=== PATIENT | female | born 1955 | race Caucasian/White ===

== ENCOUNTER 2016-05-13 05:34 | Day surgery (SDC) | payer BC ==
--- NOTE | 2016-05-07 10:54 | HPF ---
CHIEF COMPLAINT Right shoulder partial-thickness rotator cuff tear. SUBJECTIVE Ms. Hernandez has completed surgery on her hand for carpal tunnel syndrome. She has been seen for postop and things are going well. She has a known right shoulder partial-thickness versus full-thickness rotator cuff tear as documented on MRI. Dr. Colon has offered her an arthroscopy for rotator cuff repair versus debridement, subacromial decompression and treatment as needed. Risks and benefits have been reviewed. Pain is still located laterally radiating to the deltoid. It is intermittent and worse with lifting, overhead motion, pushing, pulling, throwing, weather changes or movement in general. She has tried ibuprofen as well as chronic pain medication for her back. She has done a home exercise program. She has tried ice and heat. Continues to have pain in the shoulder despite all these things. She is ready for more definitive treatment and her hand at this point is improving. REVIEW OF SYSTEMS Review of Systems was obtained and reviewed through patient questionnaire completed today. Constitutional: The patient does not have any chills, fever, fatigue, malaise, or weight loss. HEENT: The patient does not have any headache or dizziness. Respiratory: The patient does not have any cough, shortness of air, recent respiratory infection, or wheezing. Cardiovascular: The patient does not have any chest pain, palpitation, leg swelling, or syncope. Gastrointestinal: The patient does not have any abdominal pain, constipation, diarrhea, vomiting, heartburn, or nausea. Skin: The patient does not have any skin infection, rash, or numbness of the extremity. Musculoskeletal: The patient denies other joint pain as well. Neurological: The patient does not have any seizure. Psychiatric: The patient does not have any anxiety or depression. Hematologic/Lymphatic: The patient does not have easy bruising or easy bleeding. PAST MEDICAL HISTORY Hypercholesterolemia. Hypertension. GERD. IBS. Anxiety. Depression. Migraines. Asthma. Bronchitis. COPD. Pneumonia. Fibromyalgia. MEDICATIONS Restoril. Quetiapine. Paroxetine. Hydrocodone and acetaminophen. Gabapentin. Furosemide. Duloxetine. Contrave. Baclofen. ProAir. Symbicort. Simvastatin. Estradiol. Atenolol. ALLERGIES Pentazocine, penicillin and adhesive tape. SURGICAL HISTORY 1. Right knee arthroplasty. 2. Hysterectomy. 3. Carpal tunnel release. SOCIAL HISTORY She smokes 5-10 cigarettes a day, consumes alcohol on a social basis, denies illicit drug use, and is a homemaker. FAMILY HISTORY Father - Arthritis, CT, heart failure, hypertension, hypercholesterolemia, IBS and stroke. Mother with ovarian cancer and breast cancer. PHYSICAL EXAM 5 ft. 6 in. Weighs 244 lbs. Well developed. Well nourished. Alert and oriented. No acute distress. Normal mood and affect. No rash or abnormal lesions in the affected extremity. 2+ palpable distal pulses. Brisk capillary refill. A normal-appearing gait without assistive device. She has no swelling, deformity or mass over the shoulder. There is tenderness over the anterolateral border of the acromion. Mild tenderness over the greater tuberosity. AC joint is mildly tender and anatomical neck tenderness. No bicipital groove or joint line tenderness. Hands are nontender. Range of motion: Passively is full. Does have some pain through an impingement arc of abduction and pain at the end range of motion in forward flexion. Hand and wrist range of motion is normal bilaterally. Strength is 4/5 with abduction, 4/5 internal and external rotation. Distal strength normal. She has positive impingement signs in the right shoulder. Negative Speed's, Yergason's and Dade's. No instability. She has a healed carpal tunnel incision. Neurologically intact with improving sensation in the median neve dermatome. ASSESSMENT 1. Right shoulder high-grade partial-thickness rotator cuff tear, tendinopathy and impingement and has failed conservative therapy. 2. Status post carpal tunnel release. PLAN Proceed with above-mentioned surgery. Risks and benefits have been reviewed. They are include, but are not limited to, infection, nerve damage, artery damage, stroke, CT, pulmonary embolism, deep vein thrombosis, ileus, , potential risk that although the rotator cuff is repaired it may not heal or may result in loss of strength or range of motion. She indicated she understood and wants to proceed. Risks are not limited to the above-mentioned alone. Will plan on proceeding in the near future. [place]
[2016-05-13] VITALS (19 sets, daily range): BP systolic 120–169; BP diastolic 60–95; PULSE 59–98; RESP 16–26; TEMP 97.8–98.3; O2SAT 93–100; Ht 167.6 cm; Wt 108.6 kg
[~2016-05-13] VITALS: Ht 167.6 cm; Wt 108.6 kg
[~2016-05-13 05:34] MED LIST: ALBU8.5H INH; ASPI-557 PO; ATEN100T77 PO; BACL20TA PO; BUDE10.22 INH; DIPH25CA84 PO; DOCU-168 PO; DULO60CA46 PO; ESTR2TAB PO; FURO-35 PO; GABA-354 PO; ONDA4TAB4 PO; POTA20TA68 PO; QUET200T PO; SIMV40TA82 PO; TRAM50TA53 PO; [UNRECOGNIZED DRUG - CODE] PO; [UNRECOGNIZED DRUG - CODE] PO; [UNRECOGNIZED DRUG - CODE] PO; [UNRECOGNIZED DRUG - OTHER] PO
--- OUTSIDE RECORDS SUMMARY | 2016-05-13 05:37 | XMS REPORT | Continuity of Care Document ---
Author Author [facility] Organization [facility] Address Unknown Phone Unavailable Support Name Relationship Address Phone GINA COLON MD Caregiver [address] [place] [address] Unavailable REBA OLIVERA Caregiver [address] [place] [address] Unavailable JOHN HERNANDEZ Next Of Kin [address] [facility] [address] [place] [address] Insurance Providers Guarantor Babatunde Hernandez S Address [address] [facility] [facility] [address] [place] [address] Email [email or web address] Payer [employer] Other Policy Number [id number] Subscriber's Name John Hernandez Brandy Relationship 01 Spouse Group Number [id number] Advance Directives Directive Response Recorded Date/Time Ordered Resuscitation Status Full Code 04/09/16 3:17pm Resuscitation Documents on File No 04/10/16 9:17am DPOA for Healthcare Only No 04/10/16 9:17am Living Will No 04/10/16 9:17am Problems Active Problems Medical Problem Onset Date Status Asthma Unknown Chronic COPD (chronic obstructive pulmonary disease) Unknown Degenerative arthritis of right knee Unknown Fibromyalgia Unknown GERD (gastroesophageal reflux disease) Unknown Hypertension Unknown Hypo-osmolality and hyponatremia Unknown Acute Lumbago Unknown Nicotine dependence Unknown Obesity, morbid, BMI 40.0-49.9 Unknown Panic disorder Unknown Risk factors for obstructive sleep apnea Unknown Medications Current Home Medications Medication Dose Units Route Directions Days Qty Instructions Start Date Albuterol Sulfate (Proair Hfa 90 Mcg/Actuation) 8.5 Gm Hfa.aer.ad 2 Puff Inhalation Every 4-6 Hours as needed for Asthma 05/09/14 Aspirin (Aspir 81) 81 Mg Tablet. 1 Tab Oral Daily 30 Tablet 04/09 Atenolol 100 Mg Tablet 100 Mg Oral Daily 05/09/14 Baclofen 20 Mg Tablet 1 Tab Oral Three Times A Day 90 04/09/16 Budesonide/Formoterol Fumarate (Symbicort 80/4.5) 60 Puff/Inhaler Inhaler 2 Puff Inhalation Twice A Day 05/09/14 Diphenhydramine Hcl (Benadryl) 25 Mg Capsule 2 Cap Oral Every 4-6 Hours as needed for Allery Symptoms 05/09/14 Docusate Sodium (Colace) 100 Mg Capsule 2 Cap Oral Bedtime as needed for Constipation 05/23/14 Duloxetine Hcl (Cymbalta) 60 Mg Capsule.dr 2 Cap Oral Daily 05/09 Estradiol 2 Mg Tablet 1 Tab Oral Daily 05/09/14 Furosemide 20 Mg Tablet 20 Mg Oral Daily 05/09/14 Gabapentin 400 Mg Capsule 1 Cap Oral Three Times A Day 90 Capsule 04/09/16 Hydrocodone/Acetaminophen (Hydrocodon-Acetaminophn 10-300) 10-300 Tablet 1 Tab Oral Every 6 Hours as needed for Pain 04/09/16 Ondansetron Hcl (Zofran) 4 Mg Tablet 4 Mg Oral Every 6 Hours for Nausea 10 Tablet 04/10/16 Paroxetine Hcl 20 Mg Tablet 20 Mg Oral Three Times A Day 05/09/14 Potassium Chloride (Klor-Con M20) 20 Meq Tab.prt.sr 20 Meq Oral Daily 05/09/14 Quetiapine Fumarate (Seroquel) 200 Mg Tablet 200 Mg Oral As Directed 100 MG AT 0800 100 MG 1300 300 MG HS 05/09/14 Simvastatin 40 Mg Tablet 40 Mg Oral Bedtime 05/09/14 Temazepam 30 Mg Capsule 30 Mg Oral Bedtime 05/09/14 Tramadol Hcl (Ultram) 50 Mg Tablet 1-2 Tab Oral Every 4 Hours Prn as needed for Pain 60 Tablet 04/10/16 Past Home Medications Medication Directions Ordered Status Aspirin (Aspirin Ec) 81 Mg Tablet.dr, 1 Tab Oral Daily 05/09/14 Discontinued Aspirin/Acetaminophen/Caffeine (Excedrin Extra Strength Caplet) 1 Each Tablet, 2 Tab Oral Four Times Daily 05/23/14 Discontinued Hydrocodone Bit/Acetaminophen (Hydrocodone-Apap 7.5/500 Mg Ta) 1 Udtab Tablet, 1 Tab Oral Every 6 Hours as needed for Pain 05/09/14 Discontinued Ibuprofen 200 Mg Tablet, 2 Tab Oral Every 4 Hours as needed for Pain Discontinued Naltrexone Hcl/Bupropion Hcl (Contrave Er 8-90 Mg Tablet) 1 Each Tablet.er, 1 Tab Oral Four Times Daily 04/09/16 Discontinued Social History Social History Problem Response Recorded Date/Time Onset Date Status Reason for Hospitalization right carpal tunnel release 04/10/2016 12:09pm Not Applicable Not Applicable Chewing Tobacco Status No 04/09/2016 2:56pm Not Applicable Not Applicable Hx Substance Use No 04/09/2016 2:56pm Not Applicable Not Applicable Hx Alcohol Use Y [place] 04/09/2016 2:56pm Not Applicable Not Applicable Has the pt used tobacco in the last 12 months Yes 04/10/2016 9:21am Not Applicable Not Applicable Query Response Start Date Stop Date Smoking Status Current every day smoker Hospital Discharge Instructions Instructions: Care Instructions: I was in the hospital because (patient own words): "fix my right hand carpal tunnel" Discharge Diet: Resume normal diet as tolerated. Discharge Activity: Please refer to Dr. Colon's postoperative instructions. Follow Up Appointments: ZACH Del Rosario April 25, 2016 at 2:30pm Pending Lab / Results: No Pending Lab Expected Signs/Symptoms: Please refer to Dr. Colon's postoperative instructions. Notify Physician If: Please refer to Dr. Colon's postoperative instructions. During Business Hours:: Please call our office at [phone]. After Business Hours:: Please call the hospital at [phone] and have the physician or the covering physician paged. Pain Management/Treatment: Please refer to Dr. Colon's postoperative instructions. Wound/Incision Care: Please refer to Dr. Colon's postoperative instructions. Condition at time of discharge: Good Plan of Care Discharge Date 04/10/16 2:00pm Instructions/Education Provided [facility] [place] Carpal Tunnel Prescriptions See Medication Section Functional Status Query Response Date Recorded Ability to complete ADL's impeded by No change April 10, 2016 9:17am Allergies, Adverse Reactions, Alerts Allergen Type Severity Reaction Status Last Updated Penicillin Allergy Unknown HIVES, DIFFICULTY BREATHING Active 04/10/16 Pentazocine Allergy Unknown RASH, ITCHING, SWELLING, VERTIGO Active Latex Allergy Unknown RASH Active 04/10/16 ADHESIVE TAPE Allergy Unknown RASH Active 05/09/14 Immunizations Query Response on File Recorded Date/Time Hx Influenza Vaccination Y fall 201504/09/16 2:56pm Hx Pneumococcal Vaccination Y fall04/09/16 2:56pm Hx Influenza Vaccination Y fall 201504/09/16 2:56pm Vital Signs Acute Vital Signs Vital Response Date/Time Temperature (Fahrenheit) 98.4 deg F (96.8 - 99.1) 04/10/2016 1:25pm Temperature (Calculated Celsius) 36.91754 degrees C (36.0 - 37.3) 04/10/2016 1:25pm Temperature Source Temporal 04/10/2016 1:25pm Pulse Rate (adult) 75 bpm (60 - 100) 04/10/2016 1:25pm Respiratory Rate 16 breaths/min (10 - 20) 04/10/2016 1:25pm O2 Sat by Pulse Oximetry 94 % (90 - 100) 04/10/2016 1:25pm Oxygen Delivery Method Room Air 04/10/2016 1:25pm Blood Pressure 130/69 mm Hg 04/10/2016 1:25pm Blood Pressure Source Automatic Cuff 04/10/2016 1:25pm Height (Feet) 5 feet 04/10/2016 9:16am Height (Inches) 6.00 inches 04/10/2016 9:16am Weight (Kilograms) 110.900 kg 04/10/2016 9:16am Body Mass Index (BMI) 39.5 04/10/2016 9:16am Results Laboratory Results Test Name Result Units Flags Reference Collection Date/Time Result Date/ Time Comments Icterus Index < 2 0-7 04/10/2016 9:00am 04/10/2016 9:17am Chemistry Specimen Hemolysis < 15 0-25 04/10/2016 9:00am 04/10/2016 9 :17am 0-25: Specimen Exhibited No Hemolysis. Turbidity < 20 0-20 04/10/2016 9:00am 04/10/2016 9:17am Sodium Level 139 MEQ/L 134-144 04/10/2016 9:00am 04/10/2016 9:17am Potassium Level 3.9 MEQ/L 3.6-5 04/10/2016 9:00am 04/10/2016 9:17am Chloride Level 104 MEQ/L 98-107 04/10/2016 9:00am 04/10/2016 9:17am Carbon Dioxide Level 27 MEQ/L 22-30 04/10/2016 9:00am 04/10/2016 9: 17am Anion Gap 8 MEQ/L 5-15 04/10/2016 9:00am 04/10/2016 9:17am Blood Urea Nitrogen 10.0 MG/DL 7-17 04/10/2016 9:00am 04/10/2016 9: 17am Creatinine 0.7 MG/DL 0.7-1.2 04/10/2016 9:00am 04/10/2016 9:17am BUN/Creatinine Ratio 14 RATIO 6-26 04/10/2016 9:00am 04/10/2016 9:17am Glomerular Filtration Rate Calc 86 04/10/2016 9:00am 04/10/2016 9: 17am Glucose Level 99 MG/DL 65-110 04/10/2016 9:00am 04/10/2016 9:17am Calculated Osmolality 267 MOSM/KG 261-280 04/10/2016 9:00am 04/10/2016 9:17am Calcium Level 9.0 MG/DL 8.4-10.2 04/10/2016 9:00am 04/10/2016 9:17am Procedures Procedure Status Date Provider(s) Carpal tunnel release, right Completed 04/10/16 GINA COLON MD Encounters Encounter Location Arrival/Admit Date Discharge/Depart Date Attending Provider Departed [facility] 04/10/16 8:40am 04/10/16 2: 00pm GINA COLON MD
--- OUTSIDE RECORDS SUMMARY | 2016-05-13 05:37 | XMS REPORT | Continuity of Care Document ---
Author Author [facility] Organization [facility] Address Unknown Phone Unavailable Care Team Providers Care Importer Exporter Name Role Phone Jasson Alston Primary Care Physician [phone] Source Comments Some departments are not documenting in the electronic medical record. If you do not see the information that you expected, contact Release of Information in the Health Information Management department at [phone] for further assistance in locating additional records.[facility] Active Allergies and Adverse Reactions Allergen Noted Date Severity Reactions Comments Adhesive Tape (Rosins) 02/19/2011 ITCHING Penicillin G 01/27/2011 HIVES, SHORTNESS OF BREATH Talwin 01/27/2011 RASH, ITCHING, EDEMA Current Medications Prescription Sig. Disp. Refills Start End Date Status Date simvastatin (ZOCOR) 40 mg Take 40 mg by mouth at Active tablet bedtime daily. zolpidem (AMBIEN) 10 mg Take 10 mg by mouth at Active tablet bedtime as needed. pregabalin (LYRICA) 150 Take 150 mg by mouth Active mg capsule three times daily. PARoxetine (PAXIL) 20 mg Take 20 mg by mouth Active tablet daily. Take three tablets daily. potassium chloride SR Take 20 mEq by mouth Active (K-DUR) 20 mEq tablet daily. clonazePAM (KLONOPIN) 1 Take 1 mg by mouth twice Active mg tablet daily. CYCLOBENZAPRINE HCL Take 10 mg by mouth three Active (CYCLOBENZAPRINE PO) times daily. QUETIAPINE FUMARATE Take 100 mg by mouth Active (SEROQUEL PO) twice daily. Take 200 mg at lunchtime, 200 mg at bedtime. furosemide (LASIX) 20 mg Take 20 mg by mouth Active tablet daily. TRIAMCINOLONE ACETONIDE Insert into nose as Active (NASACORT NA) directed. albuterol (PROAIR HFA) 90 Inhale 2 Puffs by mouth Active mcg/Actuation inhaler every 6 hours as needed. budesonide/formoterol(+) Inhale 2 Puffs by mouth Active (SYMBICORT) 80-4.5 twice daily. mcg/Actuation HFAA inhalation estradiol (ESTRACE) 2 mg Take 2 mg by mouth daily. Active tablet cyproheptadine Take 4 mg by mouth. Two Active (PERIACTIN) 4 mg tablet tabs BID ATENOLOL PO Take 100 mg by mouth Active daily. NEBULIZER/COMPRESSOR Use as directed. Active (DEVILBISS TRAVELER COMPRESSOR MISC) albuterol 0.5% Inhale 2.5 mg solution as Active (PROVENTIL; VENTOLIN) 2.5 directed every 6 hours as mg/0.5 mL Nebu nebulizer needed. solution VITS Take by mouth. Active W-CA,FE,FA(<1MG) ( VITAMIN PO) Fiber (Herbal) Tab Take by mouth. Active DOCUSATE CALCIUM (STOOL Take by mouth. Active SOFTENER PO) Aspirin 81 mg Tab Take by mouth daily. Active HYDROcodone/acetaminophen Take 1 Tab by mouth every Active (+) (LORTAB) 7.5/500 mg 6 hours as needed. tablet fentaNYL (DURAGESIC) 50 Apply 1 Patch to top of Active mcg/hr patch skin as directed every 72 hours. DOCOSAHEXANOIC ACID/EPA Take by mouth daily. Active (FISH OIL PO) ASCORBATE CALCIUM Take by mouth daily. Active (VITAMIN C PO) diphenhydrAMINE Take 50 mg by mouth as Active (BENADRYL) 25 mg capsule Needed. Active Problems Problem Noted Date Right breast mass [facility] 01/28/2011 Overview: Diagnosis: Right breast masees Procedure: Right WL excisional biopsy 02/19/11 History: The patient presents to the [facility] on 01/28/11 for an evaluation of right breast mass. She has also recently noted a mass in her right axilla which has been intermittently present for a year, but is now sore. Outside imaging ([place]): Mammogram 11/27/10 reviewed with . Two sites of concern in right breast identified. Patient unable to undergo stereo bx. Right WL excisional biopsy (bracketed WL with both targeted calcifications in one specimen) performed on 02/19/11. Final pathology revealed Intraductal papilloma (0.2 cm) involved by adenosis, completely excised. Focal sclerosing adenosis, fibrocystic changes and usual ductal hyperplasia. Microcalcifications identified in the benign ducts. FH: Breast cancer: 2 paternal aunts, mother, 2 maternal aunts (1with breast and ovarian), ages unknown. Genetic counseling scheduled for post operative appointment. 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 Pulse 72 02/28/2011 3:45 PM [employer]ARD[employer] MECH[employer]IC Temperature 36.9 C (98.5 F) 02/28/2011 3:45 PM [employer] MECH[employer]IC Respiratory Rate - - Height 1.651 m (5' 5") 02/19/2011 11:14 AM [employer]ARD[employer]CH[employer] Weight 120.112 kg (264 lb 12.8 02/28/2011 3:45 PM GARD[employer] MECH[employer]IC oz) Body Mass Index 44.06 02/28/2011 3:45 PM [employer]ARD[employer]CH[employer] Oxygen Saturation 98% 02/19/2011 3:56 PM [employer]ARD[employer] MECH[employer]IC Plan of Care Health Maintenance Due Date Last Done Comments Hepatitis C Screening 1957 Physical (Comprehensive) 1964 Exam Pertussis Vaccine 1968 Tetanus Vaccine 1974 Cervical Cancer Screening 1978 Colorectal Cancer 11/04/2007 Screening Breast Cancer Screening 01/29/2012 01/28/2011 Influenza Vaccine 10/11/2016 Results from Last 3 Months Not on file
--- OUTSIDE RECORDS SUMMARY | 2016-05-13 05:37 | XMS REPORT | Continuity of Care Document ---
Author Author [facility] Address Unknown Phone Unavailable Allergies Active Description Code Type Severity Reaction Onset Reported/Identified Relationship to Patient Clinical Status Yes LATEX GLOVES [id number] Drug Allergy N/A N/A Yes ADHESIVE TAPE 79952 Chemical N/A N/A Yes PENICILLIN G 86960 DRUG INGREDI N/A N/A Yes PENTAZOCINE LACTATE 5087 DRUG INGREDI N/A N/A Medications Problems Procedures Results Test Result Range COMPREHENSIVE METABOLIC PANEL - 01/25/15 10:22 ALBUMIN 3.3 g/dL 3.5-5.0 ALKALINE PHOSPHATASE 89 U/L 46-116 ALT 31 U/L 9-52 AST 20 U/L 14-36 BILIRUBIN,TOTAL 0.2 mg/dL 0.2-1.3 BUN BLOOD 16 mg/dL 7-17 CALCIUM 8.9 mg/dL 8.4-10.2 CHLORIDE 97 mmol/L 99-108 CO2 28 mmol/L 22-30 CREATININE 0.91 mg/dL 0.70-1.20 EGFR > mL/min >59 GLUCOSE 91 mg/dL 64-110 POTASSIUM 4.3 mmol/L 3.6-5.0 PROTEIN TOTAL 7.3 g/dL 6.0-8.0 SODIUM 134 mmol/L 138-148 CBC WITH AUTO DIFFERENTIAL - 01/25/15 10:22 BASOPHILS RELATIVE PERCENT 0.9 % 0.0-2.5 EOSINOPHILS RELATIVE PERCENT 0.8 % <=5.0 HEMATOCRIT 40.1 % 34.9-44.5 HEMOGLOBIN 13.0 g/dL 12.0-15.5 LYMPHOCYTES RELATIVE PERCENT 27.4 % 22.0- 49.0 MEAN CORPUSCULAR HEMOGLOBIN 29.0 pg 26.0- 34.0 MEAN CORPUSCULAR HEMOGLOBIN CONC 32.4 g/dL 31.0-37.0 MEAN CORPUSCULAR VOLUME 89.7 fL 81.6- 98.3 MONOCYTES RELATIVE PERCENT 7.7 % 2.0-9.0 NEUTROPHILS RELATIVE PERCENT 63.2 % 40.0- 75.0 PLATELET COUNT 423 10E9/L 150-450 RED BLOOD CELL COUNT 4.48 10E12/L 3.90- 5.03 RED CELL DISTRIBUTION WIDTH 13.1 % 11.9- 15.5 [id number] 11.5 10E9/L 3.5-10.5 2933097 3.20 10E9/L 0.90-2.90 0566206 0.90 10E9/L 0.30-0.90 6489718 0.10 10E9/L 0.05-0.50 3602480 7.20 10E9/L 1.70-7.00 9191218 0.10 10E9/L 0.00-0.30 TSH (REFLEX FREE T4 IF ABNORMAL) - 01/25/15 10:22 TSH 4.110 uIU/mL 0.400-4.000 T4, FREE - 02/01/15 14:09 FREE T4 0.85 ng/dL 0.70-1.71 T4, FREE - 04/17/15 10:11 FREE T4 0.61 ng/dL 0.70-1.71 TSH - 04/17/15 10:11 TSH 2.255 uIU/mL 0.400-4.000 CBC WITH AUTO DIFFERENTIAL - 07/25/15 11:18 BASOPHILS RELATIVE PERCENT 2.1 % 0.0-2.5 EOSINOPHILS RELATIVE PERCENT 1.7 % <=5.0 HEMATOCRIT 39.9 % 34.9-44.5 HEMOGLOBIN 13.1 g/dL 12.0-15.5 LYMPHOCYTES RELATIVE PERCENT 32.3 % 22.0- 49.0 MEAN CORPUSCULAR HEMOGLOBIN 29.1 pg 26.0- 34.0 MEAN CORPUSCULAR HEMOGLOBIN CONC 32.8 g/dL 31.0-37.0 MEAN CORPUSCULAR VOLUME 88.5 fL 81.6- 98.3 MONOCYTES RELATIVE PERCENT 7.1 % 2.0-9.0 NEUTROPHILS RELATIVE PERCENT 56.8 % 40.0- 75.0 PLATELET COUNT 369 10E9/L 150-450 RED BLOOD CELL COUNT 4.51 10E12/L 3.90- 5.03 RED CELL DISTRIBUTION WIDTH 13.1 % 11.9- 15.5 7560203 7.9 10E9/L 3.5-10.5 5267094 2.60 10E9/L 0.90-2.90 4480891 0.60 10E9/L 0.30-0.90 7109305 0.10 10E9/L 0.05-0.50 8626069 4.40 10E9/L 1.70-7.00 6612494 0.20 10E9/L 0.00-0.30 COMPREHENSIVE METABOLIC PANEL - 07/25/15 11:18 ALBUMIN 3.6 g/dL 3.5-5.0 ALKALINE PHOSPHATASE 93 U/L 46-116 ALT 21 U/L 9-52 AST 16 U/L 14-36 BILIRUBIN,TOTAL 0.3 mg/dL 0.2-1.3 BUN BLOOD 9 mg/dL 7-17 CALCIUM 9.2 mg/dL 8.4-10.2 CHLORIDE 98 mmol/L 99-108 CO2 28 mmol/L 22-30 CREATININE 0.90 mg/dL 0.70-1.20 EGFR > mL/min >59 GLUCOSE 100 mg/dL 64-110 POTASSIUM 4.5 mmol/L 3.6-5.0 PROTEIN TOTAL 7.5 g/dL 6.0-8.0 SODIUM 136 mmol/L 138-148 LIPID PANEL - 07/25/15 11:18 CHOLESTEROL 244 mg/dL <=200 HDL CHOLESTEROL 58 mg/dL 40-90 NON-HDL CHOLESTEROL 186 mg/dL 0-129 TRIGLYCERIDE 410 mg/dL 0-149 HEPATITIS C ANTIBODY - 07/25/15 11:18 HEP C IGG INTERP. Non-reactive Non- reactive CBC WITH AUTO DIFFERENTIAL - 03/26/16 09:48 BASOPHILS RELATIVE PERCENT 0.4 % 0.0-2.5 EOSINOPHILS RELATIVE PERCENT 1.7 % <=5.0 HEMATOCRIT 36.6 % 34.9-44.5 HEMOGLOBIN 12.1 g/dL 12.0-15.5 LYMPHOCYTES RELATIVE PERCENT 39.4 % 22.0- 49.0 MEAN CORPUSCULAR HEMOGLOBIN 30.1 pg 26.0- 34.0 MEAN CORPUSCULAR HEMOGLOBIN CONC 33.1 g/dL 31.0-37.0 MEAN CORPUSCULAR VOLUME 90.7 fL 81.6- 98.3 MONOCYTES RELATIVE PERCENT 6.8 % 2.0-9.0 NEUTROPHILS RELATIVE PERCENT 51.7 % 40.0- 75.0 PLATELET COUNT 306 10E9/L 150-450 RED BLOOD CELL COUNT 4.04 10E12/L 3.90- 5.03 RED CELL DISTRIBUTION WIDTH 12.6 % 11.9- 15.5 9021124 8.3 10E9/L 3.5-10.5 5052056 3.30 10E9/L 0.90-2.90 8882966 0.60 10E9/L 0.30-0.90 8217332 0.10 10E9/L 0.05-0.50 3946449 4.30 10E9/L 1.70-7.00 4590614 0.00 10E9/L 0.00-0.30 LIPID PANEL-[place] - 03/26/16 09:48 CHOLESTEROL 186 mg/dL <=200 CHOLESTEROL/HDL RATIO 3.4 <=4.4 HDL CHOLESTEROL 54 mg/dL 40-90 TRIGLYCERIDE 226 mg/dL 0-601 3085054 87 mg/dL TSH (REFLEX FREE T4 IF ABNORMAL) - 03/26/16 09:48 TSH 2.426 uIU/mL 0.400-4.000 CBC WITH AUTO DIFFERENTIAL - 04/30/16 16:10 BASOPHILS RELATIVE PERCENT 1.1 % 0.0-2.5 EOSINOPHILS RELATIVE PERCENT 1.6 % <=5.0 HEMATOCRIT 35.1 % 34.9-44.5 HEMOGLOBIN 11.4 g/dL 12.0-15.5 LYMPHOCYTES RELATIVE PERCENT 41.8 % 22.0- 49.0 MEAN CORPUSCULAR HEMOGLOBIN 29.3 pg 26.0- 34.0 MEAN CORPUSCULAR HEMOGLOBIN CONC 32.6 g/dL 31.0-37.0 MEAN CORPUSCULAR VOLUME 89.8 fL 81.6- 98.3 MONOCYTES RELATIVE PERCENT 9.1 % 2.0-9.0 NEUTROPHILS RELATIVE PERCENT 46.4 % 40.0- 75.0 PLATELET COUNT 309 10E9/L 150-450 RED BLOOD CELL COUNT 3.91 10E12/L 3.90- 5.03 RED CELL DISTRIBUTION WIDTH 12.5 % 11.9- 15.5 1264899 8.6 10E9/L 3.5-10.5 3127858 3.60 10E9/L 0.90-2.90 8796959 0.80 10E9/L 0.30-0.90 2049066 0.10 10E9/L 0.05-0.50 3006091 4.00 10E9/L 1.70-7.00 7317206 0.10 10E9/L 0.00-0.30 BASIC METABOLIC PANEL - 04/30/16 16:10 BUN BLOOD 9 mg/dL 7-17 CALCIUM 8.5 mg/dL 8.4-10.2 CHLORIDE 101 mmol/L 99-108 CO2 32 mmol/L 22-30 CREATININE 0.93 mg/dL 0.70-1.20 EGFR > mL/min >59 GLUCOSE 86 mg/dL 64-110 POTASSIUM 4.0 mmol/L 3.6-5.0 SODIUM 140 mmol/L 135-145 VITAMIN B12 - 04/30/16 16:10 VITAMIN B12 516 pg/mL 211-911 FERRITIN - 04/30/16 16:10 FERRITIN 44 ng/mL 10-291 FOLATE RBC - 04/30/16 16:10 RED CELL FOLATE 1197 ng/mL 280-791 Encounters ACCT No. Visit Date/Time Discharge Status Pt. Type Provider Facility Loc./Unit Complaint [id number] 02/20/2016 14:09:49 02/20/2016 14:09:50 DIS Outpatient [id number] 02/20/2016 14:09:08 02/20/2016 14:09:09 DIS Outpatient [id number] 02/20/2016 14:07:05 02/20/2016 14:07:06 DIS Outpatient [id number] 02/20/2016 13:37:22 02/20/2016 13:37:22 DIS Outpatient [id number] 02/20/2016 13:36:06 02/20/2016 13:36:07 DIS Outpatient [id number] 02/20/2016 13:09:04 02/20/2016 13:09:04 DIS Outpatient [id number] 02/20/2016 13:08:50 02/20/2016 13:08:50 DIS Outpatient [id number] 02/20/2016 13:07:18 02/20/2016 13:07:18 DIS Outpatient [id number] 02/16/2016 09:36:28 02/16/2016 09:36:28 DIS Outpatient [id number] 02/16/2016 09:36:07 02/16/2016 09:36:08 DIS Outpatient [id number] 03/06/2016 11:06:23 DIS Outpatient [id number] 02/20/2016 15:12:52 DIS Outpatient [id number] 02/20/2016 14:07:00 DIS Outpatient [id number] 02/20/2016 13:37:41 DIS Outpatient [id number] 02/20/2016 13:37:21 DIS Outpatient [id number] 02/20/2016 13:35:50 DIS Outpatient [id number] 02/20/2016 13:31:00 Document Registration [id number] 02/20/2016 06:44:47 ACT Outpatient [id number] 02/20/2016 06:44:46 ACT Outpatient [id number] 02/16/2016 09:39:12 DIS Outpatient [id number] 02/16/2016 09:37:37 DIS Outpatient [id number] 02/16/2016 09:37:36 DIS Outpatient [id number] 02/16/2016 09:36:27 DIS Outpatient
[2016-05-13] MEDS: LR 1,000 ML IV SCH ×2 (06:28→09:14)
[2016-05-13 06:38] LABS: ANION GAP 11 MEQ/L (5-15); BUN/CREATININE RATIO 19 RATIO (6-26); CALCIUM 9.3 MG/DL (8.4-10.2); CHLORIDE 105 MEQ/L (98-107); CO2 - CARBON DIOXIDE 26 MEQ/L (22-30); CREATININE 0.7 MG/DL (0.7-1.2); GLOMERULAR FILTRATION RATE 86; GLUCOSE 104 MG/DL (65-110); POTASSIUM 4.5 MEQ/L (3.6-5); SODIUM 142 MEQ/L (134-144)
--- NOTE | 2016-05-13 06:46 | ANESPREOP ---
Anesthesia Record Date and Time DATE: 05/13/16 TIME: 06:44 Pre-Op Diagnosis right rotator cuff tear Proposed Surgical Procedure RT SHOULDER SCOPE NPO since: midnight Allergies: Coded Allergies: amitriptyline (Verified Allergy, Mild, RASH, 05/13/16) Penicillins (Unverified Allergy, Unknown, HIVES, DIFFICULTY BREATHING, 05/13) latex (Unverified Allergy, Unknown, RASH, 05/13/16) DOES USE NON LATEX UNDERWEAR pentazocine (Unverified Allergy, Unknown, RASH, ITCHING, SWELLING, VERTIGO , 05/13/16) Uncoded Allergies: ADHESIVE TAPE (Allergy, Unknown, RASH, 05/09/14) Ht/Wt/BMI Height: 5 ' 6.00 " Weight: 108.600 kg BMI: 38.6 kg/m2 Vital Signs Date Time Temp Pulse Resp B/P Pulse Ox O2 Delivery O2 Flow Rate FiO2 05/13/16 05:52 98.3 59 16 145/69 96 Room Air Medications Inpatient Medications Current Medications Medications (Trade) Dose Ordered Sig/Zakia Start Time Stop Time Status Last Admin Dose Admin Lactated Ringer's (Lactated Ringers) 1,000 ml @ 50 mls/hr Q20H 05/13/16 07:00 05/13/16 06:28 50 MLS/HR Albuterol Sulfate (Proair HFA 90 mcg/actuation) 8.5 Gm Hfa.aer.ad, 2 PUFF INH Q4 -6H PRN for ASTHMA, (Reported) Last Taken: on 05/13/16 0619 Aspirin (Aspir 81) 81 Mg Tablet.dr, 1 TAB PO DAILY, (Reported) Last Taken: on 05/03/16 Atenolol (Atenolol) 100 Mg Tablet, 100 MG PO DAILY, (Reported) Last Taken: on 05/13/16 0330 Baclofen (Baclofen) 20 Mg Tablet, 1 TAB PO TID, (Reported) Last Taken: on 05/12/162029 Budesonide/Formoterol Fumarate (Symbicort 80/4.5 ) 60 Puff/Inhaler Inhaler, 2 PUFF INH BID, (Reported) Last Taken: on 05/13/16 0619 Diphenhydramine HCl (Benadryl) 25 Mg Capsule, 2 CAP PO Q4-6H PRN for ALLERY SYMPTOMS, (Reported) Last Taken: on Unknown Date & Time Docusate Sodium (Colace) 100 Mg Capsule , 2 CAP PO HS PRN for CONSTIPATION, (Reported) Last Taken: on 05/12/162029 Duloxetine HCl (Cymbalta) 60 Mg Capsule.dr, 2 CAP PO DAILY, (Reported) Last Taken: on 05/12/161199 Estradiol (Estradiol) 2 Mg Tablet, 1 TAB PO DAILY, (Reported) Last Taken: on 05/12/16799 Furosemide (Furosemide) 20 Mg Tablet, 20 MG PO DAILY, (Reported) Last Taken: on 05/12/16799 Gabapentin (Gabapentin) 400 Mg Capsule, 1 CAP PO TID, (Reported) Last Taken: on 05/12/162029 Hydrocodone/Acetaminophen (Hydrocodon- Acetaminophn 10-300) 10-300 Tablet, 1 TAB PO Q6H PRN for PAIN, (Reported) Last Taken: on 05/12/162099 Ondansetron HCl (Zofran) 4 Mg Tablet, 4 MG PO Q6H Last Taken: on Unknown Date & Time Paroxetine Hcl (Paroxetine Hcl) 20 Mg Tablet, 20 MG PO TID, (Reported) Last Taken: on 05/12/162029 Potassium Chloride (Klor-Con M20) 20 Meq Tab.prt.sr, 20 MEQ PO DAILY, (Reported) Last Taken: on 05/12/16799 Quetiapine Fumarate (Seroquel) 200 Mg Tablet, 200 MG PO DIRECTED, (Reported) 100 MG AT 0800 100 MG 1300 300 MG HS Last Taken: on 05/12/162099 Simvastatin (Simvastatin) 40 Mg Tablet, 40 MG PO HS, (Reported) Last Taken: on 05/12/162099 Temazepam (Temazepam) 30 Mg Capsule, 30 MG PO HS , (Reported) Last Taken: on 05/12/162099 [Contrate] , 1 TAB PO BID, (Reported) Last Taken: on 04/27/16 Currently on Beta Jonathan: Yes Beta Jonathan Last Taken: 05-13-16 AT 0330 Medical/Surgical History Anesthesia PMH: Reports: *Hypertension (TAKES MEDS), Anesthesia Reactions (N/V , NO AIRWAY ISSUES), Arthritis (KNEES, 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 ), Denies: *Angina, *Diabetes, *Dyspnea, *FL, Blood Transfusion Reac, CHF, CVA/Stroke/TIA, Cancer, Clotting Problems, Deep Vein Thrombosis, Glaucoma, Hepatitis, Hiatal Hernia, Malignant Hyperthermia, Pneumonia, Renal Disease, Seizures, Sleep Apnea, Thyroid Disease, Tuberculosis Smoking Status: Current every day smoker # of Packs per Day: 1 # of Years: 40 Use Chewing Tobacco?: No Second Hand Exposure: No Substance Use Type: does not use Alcohol Intake: none Past Surgical History Orthopedic Surgeries: Yes - 05/24/14 TKR-RIGHT,RT CTR Abdominal Surgeries: No Genitourinary Surgeries: Yes - BLADDER SLING 2009 Cardiac Surgeries: No Endocrine Surgeries: No Reproductive Surgeries: Yes - VAG HYST WITH LAP ASSISTED BSO 2003; LUMPECTOMY Neurological Surgeries: No Ear Surgeries: No Nose Surgeries: No Throat Surgeries: No Other Surgeries: Yes Anesthesia Adverse Reactions: FOUND none Pertinent Findings Laboratory Tests 05/13/16 06:22 EKG Rhythm: Sinus Rhythm Physical Exam Respiratory: Lungs clear Cardiovascular: FOUND Regular rate, rhythm Airway Assessment Mallampati Score: II TMD: 3 Fingerbreadths Neck Extension: Good Overall Assessment: No Airway Concerns ASA: 3 Plan Anesthesia Plan: GETA Discussion Discussed risks/options/alternatives of anesthesia and questions answered. Patient consents. Nursing pain assessment noted. Present: Spouse Attestation Statement Prior to the delivery of any anesthetic medication, I examined the patient, developed the plan, obtained the patient's consent and discussed the risk and benefits of the procedure with the patient/guardian. BONNIE HODGE BENDING MACHINE OPERATOR May 13, 2016 06:46
[2016-05-13] MEDS ORDERED: LIDOCAINE 1% (10mg/ml) 2ml SDV INJ ONE (07:00)
[2016-05-13] MEDS ORDERED: CLINDAMYCIN 600mg IVPB 50 ML IV ONE (07:00)
[2016-05-13] MEDS ORDERED: MIDAZOLAM 2mg/2ml INJECTION IV ONE (07:00)
[2016-05-13] MEDS ORDERED: ROPIVACAINE 0.5% (5mg/ml) 30ml INJ ONE (07:08)
[2016-05-13] MEDS ORDERED: ONDANSETRON 4mg/2ml INJECTION ONE ×2 (07:08→07:56)
[2016-05-13] MEDS ORDERED: DEXAMETHASONE 4mg/ml - 1ml INJECTION ONE (07:08)
[2016-05-13] MEDS ORDERED: PROPOFOL 200mg 20 ML IV ONE (07:09)
[2016-05-13] MEDS ORDERED: LIDOCAINE 2% (20mg/ml) 5ml PF SDV ONE (07:09)
[2016-05-13] MEDS ORDERED: ROCURONIUM 50mg/5ml INJECTION IV ONE (07:09)
[2016-05-13] MEDS ORDERED: LIDOCAINE JELLY 2% 30ml TUBE ONE (07:12)
--- NOTE | 2016-05-13 08:26 | ANESPD ---
Peripheral Nerve Blockade Physician: Ramon Colon MD Date: 05/13/16 Surgical Procedure: Right shoulder scope Discussion Discussed risks/options/alternatives of anesthesia and questions answered. Patient consents. Nursing pain assessment noted. Block Start: 06:55 Block Stop: 07:03 Block Employed: Intrascalene, Single Injection Indication: post-operative pain Approach: right side confirmed Position: supine, semi-queen Patient: Consent, risks/benefits discussed, Informed, post block act. discussed Monitors: EKG, SpO2, NIBP IV Sedation: Yes Sedation: sedate w/meaningful contact Midazolam (mg): 2 Initial Vital Signs First Documented Vital Signs Date Time Temp Pulse Resp B/P Pulse Ox O2 Delivery O2 Flow Rate FiO2 05/13/16 05:52 98.3 59 16 145/69 96 Room Air Post Vital Signs Vital Signs Date Time Temp Pulse Resp B/P Pulse Ox O2 Delivery O2 Flow Rate FiO2 05/13/16 07:10 60 22 143/65 94 Room Air 05/13/16 05:52 98.3 Initial Pain Score: 0 Post Block Score: 0 Prep: chlorhexadine/ETOH Ultrasound Used?: Yes (see ultrasound image in EMR) Nerve Simulator mA set at: 0.6 Twitch at: 1 Hz Muscle Response: Yes (Deltoid) Injectate Ropivacaine (%): 0.5 Ropivacaine (mL): 20 Was Epi 1:200,000 Used?: No Injection Injection made incrementally with constant monitoring and aspiration every 5ml. With 4gm of Decadron with block BONNIE HODGE CRNA May 13, 2016 08:26
[2016-05-13] MEDS ORDERED: METOCLOPRAMIDE 10mg/2ml INJECTION IV PRN (08:30)
[2016-05-13] MEDS ORDERED: ONDANSETRON 4mg/2ml INJECTION IV PRN (08:30)
[2016-05-13] MEDS ORDERED: HYDROMORPHONE 2mg/ml INJECTION IV PRN (08:30)
[2016-05-13] MEDS ORDERED: NEOSTIGMINE 10mg/10ml INJECTION ONE (08:38)
[2016-05-13] MEDS ORDERED: GLYCOPYRROLATE 0.4mg/2ml INJECTION ONE (08:38)
[2016-05-13] MEDS ORDERED: TRAM50TA53 PO (08:43)
[2016-05-13] MEDS ORDERED: ALBUTEROL INH.SOLN. 2.5mg/3ml (0.083%) Neb. AEROSOL ONE (08:45)
--- NOTE | 2016-05-13 08:46 | PDPROCED ---
Immediate Operative Note DATE: 05/13/16 TIME: 08:44 Preop Diagnosis: RIGHT SHOULDER PARTIAL VERSUS FULL THICKNESS RTC IMPINGEMENT Postop Diagnosis: Right shoulder partial rotator cuff tear, impingement Surgical Procedures: R Arthroscopic SAD (rotator cuff debridement) Surgeon: Darlene Accounting Instructor: ZACH Del Rosario Anesthesia: General Complications: none Estimated Blood Loss see anesthesia HANDY GERONIMO May 13, 2016 08:46
[2016-05-13] MEDS ORDERED: DiphenhydrAMINE 50 MG/ML INJECTION IV PRN (09:15)
--- NOTE | 2016-05-13 09:52 | ANESPO ---
Post-Op Note Date 05/13/16 Time: 09:52 Status Pt Participated in Evaluation: Pt participated in person Vital Signs Date Time Temp Pulse Resp B/P Pulse Ox O2 Delivery O2 Flow Rate FiO2 05/13/16 09:20 98.1 05/13/16 09:15 60 24 126/60 95 Room Air 05/13/16 08:55 6.00 Respiratory Function: Airway patent Telemetry Pattern: SR Mental Status: Alert/oriented Pain Level Intensity: 0 Hydration: Taking po fluids Complications during Recovery None apparent Follow-Up Instructions Instructions Per Surgeon BONNIE HODGE CRNA May 13, 2016 09:52
[2016-05-13] MEDS ORDERED: ASPI81TA2 PO (10:13)
--- NOTE | 2016-05-13 11:10 | OPNOTEF ---
DATE OF PROCEDURE 05/13/2016 PREOPERATIVE DIAGNOSES 1. Right shoulder partial-thickness articular-sided rotator cuff tear (supraspinatus). 2. Right shoulder rotator cuff impingement. POSTOPERATIVE DIAGNOSES 1. Right shoulder partial-thickness articular-sided supraspinatus tear, less than 20% depth. 2. Right shoulder degenerative type 1 superior labral tear. 3. Right shoulder subacromial bursitis with rotator cuff impingement. 4. Partial-thickness tearing, subscapularis tendon. PROCEDURE 1. Right shoulder arthroscopic extensive debridement, superior labrum, supraspinatus tendon, subscapularis tendon, subacromial bursa. 2. Right shoulder arthroscopic subacromial decompression. SURGEON Ramon Colon MD COMMUNITY PRODUCT SPECIALIST Everton Vences PA-C ANESTHESIA General with regional block. FLUIDS Please refer to Anesthesia chart. EBL Minimal. COMPLICATIONS None. CONDITION Stable to Recovery Room. DESCRIPTION OF PROCEDURE The patient was identified in the preoperative holding area. The operative extremity was identified and appropriately marked. The risks, benefits, alternatives and potential complications were discussed and informed consent was obtained. The patient was taken to the operating theatre, placed supine on the operating table. Appropriate cardiorespiratory monitors were applied and general anesthesia was induced. The patient was positioned in a seated beach chair position with all bony prominences well padded. The head and neck were secured in a safe position. The right upper extremity was sterilely prepped and draped in the usual sterile fashion. Surgical time-out was performed, confirmed with myself, the brain surgeon and circulating nurse. Preoperative antibiotics were given. Examination under anesthesia revealed full passive range of motion of the right shoulder. No evidence of instability. A standard posterior arthroscopic portal was established. The arthroscope was inserted and the glenohumeral joint was insufflated with saline. Needle localization was utilized to establish an anterior portal in the rotator interval and diagnostic examination ensued. Subscapularis was intact. There was mild fraying of the superior border at its attachment. This was debrided, showing no evidence of high-grade partial-thickness tearing. There was no retraction. The patient had a Laurel complex with a cordlike middle glenohumeral ligament and sublabral foramen. This was normal and appeared intact. Anterior, inferior and posterior dann were intact. Glenohumeral articular cartilage was intact. There was some fraying of the superior labrum which was debrided with a suction shaver. Probing of the superior labrum revealed the long head biceps anchors to be stable. The long head biceps tendon itself was intact in its intraarticular and extraarticular portions. The inferior axillary recess was free of loose bodies or debris. Posterior aspect of the cuff extending up to the infraspinatus were intact. Posterior margin of the supraspinatus was intact. There was fraying of the middle and anterior portions of the supraspinatus. This area was debrided with a suction shaver. It was felt that this encompassed about 20% of the depth of the tendon. A spinal needle was placed through this area and an 0-PDS suture was passed as a marking suture for visualization and localization of this area from the bursal aspect. The arthroscope was then withdrawn and placed into the subacromial space. A lateral portal was established. A moderate bursitis was encountered. A thorough bursectomy was performed with debridement to include the anterior lateral and posterior gutters. The bursal aspect of the rotator cuff was then carefully inspected, in particular the area with a marking PDS suture. There was found to be no deficiency or bursal-sided tearing or significant weakness within the tendon itself, even with aggressive shaving. There was marked fraying of the CA ligament. This was released with a radiofrequency ablation device revealing a large anterior subacromial spur. A 5.5 bur was inserted and a standard acromioplasty was performed to convert this to a type 1 acromion. This was carried over to the level of the AC joint. The inferior capsule was released and the lateral clavicle was coplaned with a bur. The shoulder was then copiously lavaged, irrigated and drained. All arthroscopic instruments were removed. Portals were closed with nylon sutures. Sterile dressings were applied followed by a Polar Pack with all skin edges covered. A sling was then applied. The patient was awakened from anesthesia and taken to the recovery room in stable and satisfactory condition. [place]
== END 2016-05-13 10:35 | disposition home or self-care (01) ==
LOC: NSC 05:34
PROVIDERS: ATTEND Orthopaedic Surgery
DX: M75.111 Incomplete rotator cuff tear or rupture of right shoulder, not specified as traumatic (principal); M75.41 Impingement syndrome of right shoulder; M75.51 Bursitis of right shoulder; M24.111 Other articular cartilage disorders, right shoulder; I10 Essential (primary) hypertension; E78.00 Pure hypercholesterolemia, unspecified; K21.9 Gastro-esophageal reflux disease without esophagitis; F41.9 Anxiety disorder, unspecified; F32.9 Major depressive disorder, single episode, unspecified; J45.909 Unspecified asthma, uncomplicated; J44.9 Chronic obstructive pulmonary disease, unspecified; M79.7 Fibromyalgia; G43.909 Migraine, unspecified, not intractable, without status migrainosus; E03.9 Hypothyroidism, unspecified; F17.210 Nicotine dependence, cigarettes, uncomplicated; E66.01 Morbid (severe) obesity due to excess calories; Z79.51 Long term (current) use of inhaled steroids; Z79.899 Other long term (current) drug therapy; Z88.0 Allergy status to penicillin; Z88.5 Allergy status to narcotic agent; Z68.38 Body mass index [BMI] 38.0-38.9, adult; Z96.651 Presence of right artificial knee joint; Z90.710 Acquired absence of both cervix and uterus
CPT/HCPCS: 29823; 29826; 76942; 80048; 94640; J0330; J0360; J1100; J1200; J2250; J2405; J2704; J2710; J2765; J2795; J7120